=== PATIENT | female | born 1990 | race Two or more races ===

== ENCOUNTER 2019-07-23 13:54 | Inpatient (IN) | payer OTHER ==
[~2019-07-23] VITALS: Ht 154.9 cm; Wt 91.0 kg
[~2019-07-23 13:54] MED LIST: PREN-3 PO
[2019-07-24] MEDS: LACTATED RINGERS 1,000 ML IV SCH (21:15)
[2019-07-24] MEDS ORDERED: OXYTOCIN 30U/ 0.9% NaCL 500ML 500 ML IV ONE (21:37)
[2019-07-24] MEDS ORDERED: OXYTOCIN 30U/ 0.9% NaCL 500ML 500 ML IV PRN (21:37)
[2019-07-24] MEDS ORDERED: D5%-LACTATED RINGERS 1,000 ML IV SCH (21:37)
[2019-07-24 21:42] VITALS: BP 129/80
[2019-07-24 21:50] VITALS: BP 129/80
[2019-07-24 22:00] LABS: BASOPHILS # (AUTO) 0.05 x10^3/uL (0-0.1); BASOPHILS % (AUTO) 0 % (0-1); EOSINOPHILS # (AUTO) 0.05 x10^3/uL (0-0.4); EOSINOPHILS % (AUTO) 0 % (1-7); LYMPHOCYTES # (AUTO) 1.68 x10^3/uL (1-3.4); LYMPHOCYTES % (AUTO) 15 % (22-44); MD NO; MEAN CORPUSCULAR HEMOGLOBIN 30.5 pg (27.0-34.8); MEAN CORPUSCULAR HGB CONC 33.5 g/dL (32.4-35.8); MEAN CORPUSCULAR VOLUME 91.1 fL (80-100); MEAN PLATELET VOLUME 8.5 fL (7.4-10.4); MONOCYTES # (AUTO) 0.64 x10^3/uL (0.2-0.8); MONOCYTES % (AUTO) 6 % (2-9); NEUTROPHILS # (AUTO) 8.75 x10^3/uL (1.8-6.8); NEUTROPHILS % (AUTO) 78 % (42-75); PLATELET COUNT 253 x10^3/uL (130-400); RED BLOOD COUNT 4.43 x10^6/uL (3.82-5.3); RED CELL DISTRIBUTION WIDTH 16.1 % (9.6-15.2)
[2019-07-24] MEDS ORDERED: SODIUM CHLORIDE FLUSH 10ML SYR IVF PRN (22:00)
[2019-07-24] MEDS ORDERED: SODIUM CITRATE/CITRIC ACID 30 ML UDC PO PRN (22:00)
[2019-07-24] MEDS ORDERED: TERBUTALINE 1 MG/ML, 1ML IVPush PRN (22:00)
[2019-07-24] MEDS ORDERED: ONDANSETRON 2MG/ML, 2ML IVPush PRN (22:00)
[2019-07-24] MEDS ORDERED: CALCIUM CARBONATE 500 MG TAB.CHEW PO PRN (22:00)
[2019-07-24] MEDS ORDERED: METOCLOPRAMIDE 5 MG/ML, 2ML IVPush PRN (22:00)
[2019-07-24] MEDS ORDERED: FENTANYL PF 100 MCG/2ML IVPush PRN (22:00)
[2019-07-24] MEDS ORDERED: TERBUTALINE 1 MG/ML, 1ML SQ PRN (22:00)
[2019-07-24] MEDS ORDERED: FENTANYL PF 100 MCG/2ML IV PRN (22:00)
[2019-07-24] MEDS ORDERED: ALUMINUM/MAG/SIMETHICONE 30 ML UDC PO PRN (22:00)
[2019-07-24] MEDS ORDERED: MISOPROSTOL 25 MCG TABLET ONE (22:06)
[2019-07-24] MEDS ORDERED: OXYTOCIN 30U/ 0.9% NaCL 500ML 500 ML ONE (22:06)
[2019-07-24] MEDS ORDERED: NEWBORN KIT ONE (22:07)
[2019-07-24] MEDS: MISOPROSTOL 25 MCG TABLET VG PRN (22:17)
[2019-07-25] MEDS ORDERED: MISOPROSTOL 25 MCG TABLET ONE (02:59)
[2019-07-25] MEDS: MISOPROSTOL 25 MCG TABLET VG PRN (03:03)
[2019-07-25] MEDS: LACTATED RINGERS 1,000 ML IV SCH ×6 (03:03→19:57)
[2019-07-25] MEDS ORDERED: FENTANYL PF 100 MCG/2ML ONE ×2 (05:50→18:36)
[2019-07-25] MEDS ORDERED: FENTANYL/BUPIV./NS/PF 250 ML EPIDCONT SCH ×2 (06:05→08:45)
[2019-07-25] MEDS ORDERED: FENTANYL PF 500 MCG, BUPIVACAINE/PF 0.5%, 30ML 62.5 ML in SODIUM CHLORIDE 0.9% 177.5 ML EPIDCONT SCH (06:30)
[2019-07-25] MEDS ORDERED: BUPIVACAINE 0.25% ONE (07:23)
[2019-07-25] MEDS ORDERED: LACTATED RINGERS 1,000 ML IVBOLUS PRN (09:00)
[2019-07-25] MEDS ORDERED: EPHEDRINE 50 MG/ML, 1ML IVPush PRN (09:00)
[2019-07-25] MEDS ORDERED: LACTATED RINGERS 1,000 ML INTUTE PRN (10:30)
[2019-07-25] MEDS ORDERED: METOCLOPRAMIDE 5 MG/ML, 2ML ONE (13:19)
[2019-07-25] MEDS ORDERED: TERBUTALINE 1 MG/ML, 1ML ONE (13:19)
[2019-07-25] MEDS ORDERED: LACTATED RINGERS 1,000 ML IVBOLUS ONE (18:30)
[2019-07-25] MEDS ORDERED: ONDANSETRON 2MG/ML, 2ML ONE (18:36)
[2019-07-25] MEDS ORDERED: OXYTOCIN 10 UNITS/ML, 1ML ONE (18:36)
[2019-07-25] MEDS ORDERED: CEFAZOLIN 1,000 MG ONE (18:36)
[2019-07-25] MEDS ORDERED: HYDROmorphone 2 MG/ML, 1ML ONE (18:38)
[2019-07-25] MEDS ORDERED: SODIUM CHLORIDE 0.9% PF 10ML ONE ×2 (18:38)
[2019-07-25] MEDS ORDERED: LIDOCAINE-MPF 2% ,5ML ONE ×2 (18:39)
[2019-07-25] MEDS: OXYTOCIN 30U/ 0.9% NaCL 500ML 500 ML IV SCH (19:58)
[2019-07-25] MEDS ORDERED: ACETAMINOPHEN 325 MG TABLET PO PRN (20:00)
[2019-07-25] MEDS ORDERED: METOCLOPRAMIDE 5 MG/ML, 2ML IV PRN (20:00)
[2019-07-25] MEDS ORDERED: METHYLERGONOVINE 0.2 MG/ML IM PRN (20:00)
[2019-07-25] MEDS ORDERED: ONDANSETRON 2MG/ML, 2ML IV PRN (20:00)
[2019-07-25] MEDS ORDERED: IBUPROFEN 800 MG TABLET PO PRN (20:00)
[2019-07-25] MEDS ORDERED: MISOPROSTOL 200 MCG TABLET PR PRN (20:00)
[2019-07-25] MEDS ORDERED: CARBOPROST TROMETHAMINE 250 MCG/ML, 1ML IM PRN (20:00)
[2019-07-25] MEDS ORDERED: OXYcodone IR 5MG TABLET PO PRN (20:00)
[2019-07-25] MEDS ORDERED: KETOROLAC 30 MG/1 ML ONE (20:06)
[2019-07-25] MEDS: KETOROLAC 30 MG/1 ML IV SCH (20:14)
[2019-07-25 21:15] VITALS: BP 127/81
[2019-07-26 01:15] VITALS: BP 129/85
[2019-07-26] MEDS: KETOROLAC 30 MG/1 ML IV SCH ×5 (01:35→21:13)
[2019-07-26 03:20] LABS: MEAN CORPUSCULAR HEMOGLOBIN 30.9 pg (27.0-34.8); MEAN CORPUSCULAR HGB CONC 33.4 g/dL (32.4-35.8); MEAN CORPUSCULAR VOLUME 92.8 fL (80-100); MEAN PLATELET VOLUME 8.9 fL (7.4-10.4); PLATELET COUNT 216 x10^3/uL (130-400); RED BLOOD COUNT 4.47 x10^6/uL (3.82-5.3); RED CELL DISTRIBUTION WIDTH 15.9 % (9.6-15.2)
[2019-07-26 03:36] LABS: BASOPHILS # (AUTO) 0.05 x10^3/uL (0-0.1); BASOPHILS % (AUTO) 0 % (0-1); EOSINOPHILS # (AUTO) 0.09 x10^3/uL (0-0.4); EOSINOPHILS % (AUTO) 1 % (1-7); LYMPHOCYTES # (AUTO) 0.91 x10^3/uL (1-3.4); LYMPHOCYTES % (AUTO) 5 % (22-44); MD SCAN; MONOCYTES # (AUTO) 1.17 x10^3/uL (0.2-0.8); MONOCYTES % (AUTO) 6 % (2-9); NEUTROPHILS # (AUTO) 17.72 x10^3/uL (1.8-6.8); NEUTROPHILS % (AUTO) 89 % (42-75)
[2019-07-26] MEDS: LACTATED RINGERS 1,000 ML IV SCH ×5 (03:47→19:47)
[2019-07-26] MEDS: OXYcodone/APAP 5/325MG TABLET PO PRN ×2 (04:29→14:58)
[2019-07-26 05:00] VITALS: BP 127/81
[2019-07-26] MEDS: OXYTOCIN 30U/ 0.9% NaCL 500ML 500 ML IV SCH ×2 (05:47→15:47)
[2019-07-26] MEDS ORDERED: METHYLERGONOVINE 0.2 MG/ML IM ONE (08:00)
[2019-07-26 08:15] VITALS: BP 115/76
[2019-07-26] MEDS: SIMETHICONE 80 MG CHEW TAB PO PRN ×2 (08:22→20:03)
[2019-07-26] MEDS: PRENATAL VIT/IRON/FA 1 EACH TABLET PO SCH (08:22)
[2019-07-26] MEDS: DOCUSATE 100 MG CAPSULE PO PRN ×2 (08:22→20:03)
[2019-07-26 12:00] VITALS: BP 126/83
[2019-07-26 17:00] VITALS: BP 128/86
[2019-07-26 20:00] VITALS: BP 118/80
[2019-07-27] MEDS: OXYTOCIN 30U/ 0.9% NaCL 500ML 500 ML IV SCH ×2 (01:47→11:47)
[2019-07-27] MEDS: LACTATED RINGERS 1,000 ML IV SCH ×4 (01:47→11:47)
[2019-07-27] MEDS ORDERED: MEASLES,MUMPS&RUBELLA VACC/PF 0.5 ML SQ-VACC ONE ×2 (02:00→16:49)
[2019-07-27] MEDS: OXYcodone/APAP 5/325MG TABLET PO PRN ×4 (03:14→17:31)
[2019-07-27] MEDS: KETOROLAC 30 MG/1 ML IV SCH ×2 (03:14→09:12)
[2019-07-27 08:05] VITALS: BP 122/73
[2019-07-27] MEDS: DOCUSATE 100 MG CAPSULE PO PRN ×2 (08:16→19:29)
[2019-07-27] MEDS: PRENATAL VIT/IRON/FA 1 EACH TABLET PO SCH (09:00)
[2019-07-27] MEDS: IBUPROFEN 600 MG TABLET PO PRN ×2 (15:29→23:47)
[2019-07-27 20:00] VITALS: BP 132/84
[2019-07-28] MEDS: OXYcodone/APAP 5/325MG TABLET PO PRN (00:49)
[2019-07-28 07:05] VITALS: BP 124/77
[2019-07-28] MEDS: IBUPROFEN 600 MG TABLET PO PRN (07:24)
[2019-07-28] MEDS: PRENATAL VIT/IRON/FA 1 EACH TABLET PO SCH (07:24)
[2019-07-28] MEDS: DOCUSATE 100 MG CAPSULE PO PRN (07:24)
[2019-07-28] MEDS ORDERED: OXYC-302 PO (13:11)
[2019-07-28] MEDS ORDERED: IBUP-1222 PO (13:11)
== END 2019-07-28 14:33 | disposition home or self-care (01) | DRG 788 ==
LOC: LDIP 07-24 21:00 → 2NW 07-25 21:15
PROVIDERS: ADMIT Obstetrics & Gynecology; ATTEND Obstetrics & Gynecology
PROC: 10D00Z1 Extraction of Products of Conception, Low, Open Approach (ICD-10-PCS; principal; 2019-07-25)
DX: O48.0 Post-term pregnancy (principal); Z3A.40 40 weeks gestation of pregnancy; O76 Abnormality in fetal heart rate and rhythm complicating labor and delivery; O36.63X0 Maternal care for excessive fetal growth, third trimester, not applicable or unspecified; O32.4XX0 Maternal care for high head at term, not applicable or unspecified; Z37.0 Single live birth; O77.0 Labor and delivery complicated by meconium in amniotic fluid; Z14.1 Cystic fibrosis carrier
CPT/HCPCS: 36415; J3490; J7121; S0020; 82803; 85025; 86850; 86900; G0378; J0690; J1170; J1885; J2405; J3010; J2210; J2590; J2765; J7050; J7120